=== PATIENT | male | born 1985 | race Caucasian/White ===

== ENCOUNTER 2018-08-16 20:32 | Emergency (ER) | payer MEDICAID ==
[~2018-08-16] VITALS: Ht 177.8 cm; Wt 63.5 kg
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
--- NOTE | 2018-08-16 20:45 | NUR ---
Patient being search by hospital [facility] per protocol
[2018-08-16] MEDS ORDERED: TDAP DIPH,PERTUSS,TET VAC/PF 0.5 ML DISP.SYRIN IM ONE ×2 (21:00→21:14)
[2018-08-16] MEDS ORDERED: CEphaleXIN 500 MG CAPSULE ONE (21:44)
[2018-08-16] MEDS ORDERED: CEphaleXIN 500 MG CAPSULE PO ONE (21:45)
--- NOTE | 2018-08-16 21:45 | NUR ---
GAVE PATIENT MEAL
[2018-08-16 22:05] VITALS: BP 120/88
--- NOTE | 2018-08-16 22:05 | NUR ---
Patient given written and verbal discharge instructions. Patient verbalizes understanding of instructions. Patient is ambulatory with steady gait. Refuses offer of senior care placement. Patient given list of available shelters in surrounding area.
== END 2018-08-16 22:06 | disposition home or self-care (01) ==
LOC: ER 20:34
DX: S61.211A Laceration without foreign body of left index finger without damage to nail, initial encounter (principal); F12.10 Cannabis abuse, uncomplicated; F15.10 Other stimulant abuse, uncomplicated; Z59.0 Homelessness; Z88.2 Allergy status to sulfonamides; W26.0XXA Contact with knife, initial encounter; Y93.89 Activity, other specified; Y92.89 Other specified places as the place of occurrence of the external cause; Y99.8 Other external cause status
CPT/HCPCS: 90715; A4217; A4663

== ENCOUNTER 2019-12-02 21:46 | Emergency (ER) | payer SELFPAY ==
[~2019-12-02] VITALS: Ht 175.3 cm; Wt 68.0 kg
--- NOTE | 2019-12-02 22:14 | NUR ---
Patient discharged to home in stable condition. Written and verbal after care instructions given. Patient verbalizes understanding of instructions. Stressed follow up or return to ER for worsening s/s. Ambulated from ER with stable gait. All belongings with patient. VSS
[2019-12-02 22:15] VITALS: BP 127/71
== END 2019-12-02 22:15 | disposition home or self-care (01) ==
LOC: ER 21:47
DX: L02.511 Cutaneous abscess of right hand (principal); Z88.2 Allergy status to sulfonamides; Z59.0 Homelessness
CPT/HCPCS: 10060; 99283; J3490